=== PATIENT | male | born 2000 | race Caucasian/White ===

== ENCOUNTER 2023-01-03 19:44 | Emergency (ER) | payer MEDICAID, OTHER ==
--- NOTE | 2023-01-03 20:07 | ERPHSYRPT ---
- History of Present Illness Time Seen by Provider: 01/03/23 20:07 Source: patient Exam Limitations: no limitations Physician History: This is a 22-year-old white male who jumped out of bed quickly onto the floor to intervene in a dog fight and twisted his left ankle. He noticed swelling to the outer aspect of his left ankle. Method of Injury: twisted Occurred: just prior to arrival Quality: aching Severity of Pain-Max: mild Severity of Pain-Current: mild Lower Extremities Pain: ankle: left Modifying Factors: Improves With: movement Associated Symptoms: other (Hurts to bear weight) Allergies/Adverse Reactions: No Known Drug Allergies Allergy (Verified 07/22/16 17:48) Home Medications: No Home Meds 11/03/12 [History] Hx Tetanus, Diphtheria Vaccination/Date Given: Yes Hx Influenza Vaccination/Date Given: No Hx Pneumococcal Vaccination/Date Given: No Travel Risk - International Travel Have you traveled outside of the country in past 3 weeks: No - Coronavirus Screening Are you exhibiting any of the following symptoms?: No Close contact with a COVID-19 positive Pt in past 14-21 Days: No - Review of Systems Constitutional: No Symptoms Eyes: No Symptoms Ears, Nose, & Throat: No Symptoms Respiratory: No Symptoms Cardiac: No Symptoms Abdominal/Gastrointestinal: No Symptoms Genitourinary Symptoms: No Symptoms Musculoskeletal: Injury (Left ankle) Skin: No Symptoms Neurological: No Symptoms Psychological: No Symptoms Endocrine: No Symptoms Hematologic/Lymphatic: No Symptoms Immunological/Allergic: No Symptoms All Other Systems: Reviewed and Negative - Past Medical History Pertinent Past Medical History: No Neurological History: No Pertinent History ENT History: No Pertinent History Cardiac History: No Pertinent History Respiratory History: No Pertinent History Endocrine Medical History: No Pertinent History Musculoskeletal History: No Pertinent History GI Medical History: No Pertinent History History: No Pertinent History Psycho-Social History: No Pertinent History Male Reproductive Disorders: No Pertinent History Other Medical History: BROKEN FOOT, - Past Surgical History Past Surgical History: Yes Neuro Surgical History: No Pertinent History Cardiac: No Pertinent History Respiratory: No Pertinent History Gastrointestinal: No Pertinent History Genitourinary: No Pertinent History Other Surgical History: tubes in ears - Social History Smoking Status: Never smoker Exposure to second hand smoke: Yes Drug Use: none Patient Lives Alone: No - Nursing Vital Signs Nursing Vital Signs: Initial Vital Signs Temperature 98.3 F 01/03/23 20:05 Pulse Rate 79 02/20/23 20:05 Respiratory Rate 18 01/03/23 20:05 Blood Pressure 142/83 01/03/23 20:05 O2 Sat by Pulse Oximetry 99 01/03/23 20:05 Pain Scale Pain Intensity 8 - Physical Exam General Appearance: no apparent distress, alert Eyes, Ears, Nose, Throat Exam: normal ENT inspection, moist mucous membranes, tonsillar exudate Neck Exam: normal inspection, non-tender, supple Cardiovascular/Respiratory Exam: chest non-tender, no respiratory distress Gastrointestinal/Abdominal Exam: non-tender Back Exam: normal inspection, normal range of motion, No CVA tenderness, No vertebral tenderness Hips Exam: bilateral: non-tender, normal inspection, normal range of motion, no evidence of injury Legs Exam: bilateral leg: non-tender, normal inspection, normal range of motion, no evidence of injury Knees Exam: bilateral knee: non-tender, normal inspection, normal range of motion, no evidence of injury Ankle Exam: right ankle: non-tender, normal inspection, normal range of motion, no evidence of injury, left ankle: pain (Left lateral ankle), soft tissue tenderness (Left lateral ankle), swelling (Left lateral ankle) Foot Exam: bilateral foot: non-tender, normal inspection, normal range of motion, no evidence of injury Neuro/Tendon Exam: normal sensation, normal motor functions, normal tendon functions Mental Status Exam: alert, oriented x 3, cooperative Skin Exam: normal color, warm, dry SpO2 Interpretation: airway management int. O2 Delivery: Room Air - Course Nursing assessment & vital signs reviewed: Yes Ordered Tests: Active Orders 24 hr Category Date Time Status Gene Bandage Application -[facility] STAT Care 01/03/23 21:51 Ordered ANKLE (3 VIEWS) Stat Exams 01/03/23 20:19 Taken - Progress Progress Note: 01/03/23 21:55 X-ray left ankle shows no acute fracture or dislocation. There is soft tissue swelling lateral aspect of the left ankle 01/03/23 21:56 This patient's medical issue is of low complexity. The work-up was based on the patient's history of present illness and physical findings on examination. I ordered a x-ray of the left ankle. The results show no acute fracture or dislocation. There is soft tissue swelling present. The plan for him is to place him in an Gene wrap and to have him use ice pack 2-3 times a day for the next 48 hours and to use Tylenol and ibuprofen for pain control. Counseled pt/family regarding: diagnosis, need for follow-up, rad results Medical Desision Making - Discussion of managment Reviewed:: Test results Agreed on:: Treatment plan, need for follow-up - Diagnostic Testing Diagnostic test were ordered, analyzed, and reviewed by me: Yes Radiological Interpretation: Interpreted by me - Risk of complications Minimal Risk: Minimal risk of morbidity - Departure Departure Disposition: Home Clinical Impression: Left ankle sprain Condition: Stable Critical Care Time: No Referrals: EYAD JIMENES MD [COURTESY STAFF] - Follow up/PCP as directed Additional Instructions: Apply ice pack to tender and swollen area 3 times a day for the next 48 hours. Use Tylenol and ibuprofen for pain control. Weightbearing as tolerated. Wear Gene wrap for comfort. For persistent pain beyond the next 48 hours, follow-up at [facility] orthopedic clinic Tuesday through Tuesday 8 AM to 10 AM. Is a walk-in clinic and you do not need to have an appointment.
[2023-01-03 22:15] VITALS: BP 132/61; PULSE 64; O2SAT 97
--- NOTE | 2023-01-04 09:03 | XRAY ---
Indication: Pain and swelling. Comparison: None 3 view left ankle demonstrates anterolateral soft tissue swelling. No other bony, articular, or soft tissue abnormalities.
== END 2023-01-03 22:16 | disposition home or self-care (01) ==
LOC: ED 19:44
DX: S93.402A Sprain of unspecified ligament of left ankle, initial encounter (principal); X50.0XXA Overexertion from strenuous movement or load, initial encounter; Y92.003 Bedroom of unspecified non-institutional (private) residence as the place of occurrence of the external cause
CPT/HCPCS: 73610; 99283

== ENCOUNTER 2025-02-16 19:07 | Observation (INO) | payer OTHER ==
--- NOTE | 2025-02-16 19:42 | ERPHSYRPT ---
- History of Present Illness Time Seen by Provider: 02/16/25 19:39 Historian: patient, family Exam Limitations: no limitations Patient Subjective Stated Complaint: pt states that his side has hurt since yesterday. pt states that pain is worse after eating Triage Nursing Assessment: pt ambulated into the er; pt is axo x4; c/o rt side pain; pt states 6/10 pain to rt side; abd round, soft, nontender; active bowel sounds in all quads; denies N/V/D; skin PDW; no respiratory distress present; hypertensive Physician History: Patient is 24-year-old male otherwise healthy started having right upper quadrant abdominal pain since yesterday after he ate at around noon time. Patient was waxing and waning but today afternoon after lunch it started coming back again so he was brought into the emergency room. He denies any fever chills nausea vomiting blood in the stool or urine. He did not have this type of symptoms ever before. He does not have any history of abdominal surgery. Timing/Duration: yesterday Activities at Onset: none Quality: cramping Abdominal Pain Onset Location: RUQ Pain Radiation: no radiation Severity of Pain-Max: mild Severity of Pain-Current: mild Modifying Factors: Improves With: nothing Associated Symptoms: denies symptoms Previous symptoms: no prior history Body Map: 1 - area of pain Allergies/Adverse Reactions: No Known Drug Allergies Allergy (Verified 02/16/25 19:13) Home Medications: No Reportable Medications [No Reported Medications] 02/16/25 [History] Hx Tetanus, Diphtheria Vaccination/Date Given: Yes Hx Influenza Vaccination/Date Given: No Hx Pneumococcal Vaccination/Date Given: No Travel Risk - International Travel Have you traveled outside of the country in past 3 weeks: No - Emerging Infectious Disease Are you exhibiting symptoms associated with any current EIDs: No - Review of Systems Constitutional: No Fever, No Chills Eyes: No Symptoms Ears, Nose, & Throat: No Symptoms Respiratory: No Cough, No Dyspnea Cardiac: No Chest Pain, No Edema, No Syncope Abdominal/Gastrointestinal: Abdominal Pain (RUQ), No Nausea, No Vomiting, No Diarrhea, No Constipation Genitourinary Symptoms: No Dysuria Musculoskeletal: No Symptoms, No Back Pain, No Neck Pain Skin: No Rash Neurological: No Dizziness, No Focal Weakness, No Sensory Changes Psychological: No Symptoms Endocrine: No Symptoms Hematologic/Lymphatic: No Symptoms Immunological/Allergic: No Symptoms All Other Systems: Reviewed and Negative - Past Medical History Pertinent Past Medical History: No Neurological History: No Pertinent History ENT History: No Pertinent History Cardiac History: No Pertinent History Respiratory History: No Pertinent History Endocrine Medical History: No Pertinent History Musculoskeletal History: No Pertinent History GI Medical History: No Pertinent History History: No Pertinent History Psycho-Social History: No Pertinent History Male Reproductive Disorders: No Pertinent History Other Medical History: BROKEN FOOT, - Past Surgical History Past Surgical History: Yes Neuro Surgical History: No Pertinent History Cardiac: No Pertinent History Respiratory: No Pertinent History Gastrointestinal: No Pertinent History Genitourinary: No Pertinent History Other Surgical History: tubes in ears - Social History Smoking Status: Never smoker Exposure to second hand smoke: Yes Drug Use: none - Social Determinants of Health Will the patient participate in the screening: Yes Do you worry about a steady place to live?: No Do you have any problems with any of the following?: No known problems In the past 12 months,have you had to go without utilities?: No Transportation Issues: No Has anyone in your support network made you feel unsafe?: No Have you or anyone in your house had to go w/o enough food: No - Nursing Vital Signs Nursing Vital Signs: Initial Vital Signs Temperature 98 F 02/16/25 19:15 Pulse Rate 74 02/16/25 19:15 Respiratory Rate 16 02/16/25 19:15 Blood Pressure 160/87 02/16/25 19:15 O2 Sat by Pulse Oximetry 96 02/16/25 19:15 Pain Scale Pain Intensity 6 - Physical Exam General Appearance: no apparent distress, alert Eye Exam: PERRL/EOMI, eyes nml inspection Ears, Nose, Throat Exam: normal ENT inspection, pharynx normal, moist mucous membranes Neck Exam: normal inspection, non-tender, supple, full range of motion Respiratory Exam: normal breath sounds, lungs clear, No respiratory distress Cardiovascular Exam: regular rate/rhythm, normal heart sounds Gastrointestinal/Abdomen Exam: soft, normal bowel sounds, tenderness (RUQ), No distention, No mass, No guarding, No rebound, No hernia, No hepatomegaly Back Exam: normal inspection, normal range of motion, No CVA tenderness, No vertebral tenderness Extremity Exam: normal inspection, normal range of motion, pelvis stable Neurologic Exam: alert, oriented x 3, cooperative, normal mood/affect, nml cerebellar function, sensation nml, No motor deficits Skin Exam: normal color, warm, dry SpO2: 96 - Course Nursing assessment & vital signs reviewed: Yes - CT Exams Abdomen/Pelvis CT Interpretation: Tele-radiologist Report Ordered Tests: Active Orders 24 hr Category Date Time Status Consult Surgery ROUTINE Cons 02/16/25 22:05 Active ABDOMEN AND PELVIS W/0 CONTRAS [CT] Stat Exams 02/16/25 20:21 Completed AMYLASE Stat Lab 02/16/25 19:50 Completed CBC W DIFF Stat Lab 02/16/25 19:50 Completed CMP Stat Lab 02/16/25 19:50 Completed LIPASE Stat Lab 02/16/25 19:50 Completed UA W/RFX UR CULTURE Stat Lab 02/16/25 20:25 Completed Medication Summary Generic Name Dose Route Start Last Admin Trade Name Freq PRN Reason Stop Dose Admin Cefazolin Sodium 1 gm in 100 mls @ 200 mls/hr 02/16/25 22:23 Cefazolin 1 Gm/100 Ml Nacl Ivpb IV 02/16/25 22:52 STAT STA Discontinued Medications Generic Name Dose Route Start Last Admin Trade Name Freq PRN Reason Stop Dose Admin Ketorolac Tromethamine 60 mg 02/16/25 21:23 02/16/25 21:28 Ketorolac Tromethamine 30 Mg/Ml Inj IM 02/16/25 21:24 60 mg STAT ONE Administration Ketorolac Tromethamine Confirm 02/16/25 21:27 Ketorolac Tromethamine 30 Mg/Ml Inj Administered 02/16/25 21:28 Dose 60 mg .ROUTE .STK-MED ONE Lab/Rad Data: Laboratory Result Diagrams 02/16/25 19:50 02/16/25 19:50 Laboratory Results 02/16/25 02/16/25 02/16/25 Range/Units 20:25 19:50 19:50 WBC 11.9 H (4.23-9.07) x10^3/uL RBC 5.22 (4.63-6.08) x10^6/uL Hgb 14.8 (13.7-17.5) g/dL Hct 45.4 (40.1-51.0) % MCV 87.0 (79.0-92.2) fL MCH 28.4 (25.7-32.2) pg MCHC 32.6 (32.3-36.5) g/dL RDW 12.5 (11.6-14.4) % Plt Count 382 H (163-337) x10^3/uL MPV 9.5 (9.4-12.4) fL Gran % 73.2 H (34.0-67.9) % Immature Gran % (Auto) 0.3 (0.001-0.429) % Nucleat RBC Rel Count 0.0 (0.00-0.2) % Eos # (Auto) 0.24 (0.04-0.54) x10^3/uL Immature Gran # (Auto) 0.04 H (0.001-0.031) x10^3u/L Absolute Lymphs (auto) 1.91 (1.32-3.57) x10^3/uL Absolute Monos (auto) 0.96 H (0.30-0.82) x10^3/uL Absolute Nucleated RBC 0.00 (0.00-0.012) x10^3u/L Lymphocytes % 16.1 L (21.8-53.1) % Monocytes % 8.1 (5.3-12.2) % Eosinophils % 2.0 (0.8-7.0) % Basophils % 0.3 (0.2-1.2) % Absolute Granulocytes 8.67 H (1.78-5.38) x10^3/uL Basophils # 0.04 (0.01-0.08) x10^3/uL Sodium 145 (135-145) mmol/L Potassium 3.9 (3.5-5.1) mmol/L Chloride 105 (98-107) mmol/L Carbon Dioxide 25 (22-30) mmol/L Anion Gap 18.4 H (5-15) MEQ/L BUN 13 (9-20) mg/dL Creatinine 1.39 H (0.66-1.25) mg/dL Estimated GFR 72.6 ML/MIN Glucose 104 (74-106) mg/dL Calcium 9.5 (8.4-10.2) mg/dL Total Bilirubin 0.40 (0.2-1.3) mg/dL AST 26 (17-59) U/L ALT 36 (0-50) U/L Alkaline Phosphatase 60 (38-126) U/L Serum Total Protein 7.8 (6.3-8.2) g/dL Albumin 4.9 (3.5-5.0) g/dL Amylase 60 (30-110) U/L Lipase 46 (23-300) U/L Urine Color Yellow (Yellow) Urine Appearance Clear (Clear) Urine pH 5.5 (4.6-8.0) Ur Specific [place] 1.010 (1.005-1.030) Urine Protein Negative (Negative) Urine Glucose (UA) Negative (Negative) mg/dL Urine Ketones Negative (Negative) Urine Blood Small A (Negative) Urine Nitrite Negative (Negative) Urine Bilirubin Negative (Negative) Urine Urobilinogen 0.2 (0.2) mg/dL Ur Leukocyte Esterase Negative (Negative) Urine Microscopic RBC 0-2 (0-5) /HPF Urine Microscopic WBC 0-2 (0-5) /HPF Ur Epithelial Cells Rare (None Seen) /HPF Urine Bacteria None Seen (None Seen) /HPF Urine Culture Reflexed NO (NO) CLINICAL HISTORY: RUQ abdominal pain COMPARISON: No prior studies available for comparison. TECHNIQUE: Non-contrast CT of the abdomen and pelvis was performed, with the following protocol: axial images, and reconstructed coronal and sagittal images. One of the following dose reduction techniques was utilized for this exam: Automated exposure control, adjustment of the mA and/or kV according to patient size, and use of iterative reconstruction. DLP: 905.3 mGy-cm, CTDI: 14 mGy. FINDINGS: Abdomen: Liver: Normal in size, shape, and density. No focal lesions, cysts, or masses were identified. Gallbladder and Biliary System: The gallbladder is normal in size and shape. No wall thickening, pericholecystic fluid, or gallstones were identified. PatientID: [id number] Patient Name: ULYSSES BAER Exam Date: 02/16/2025 Procedure: ABDOMEN AND PELVIS W/0 CONTRAS page 1 of 3 Some hyperdense layering is seen along the dependent wall of gall bladder in the region of neck, raising suspicion for gall bladder sludge - needs ultrasound correlation. Pancreas: Pancreatic head, body, and tail are visualized and appear normal in size and density. No pancreatic masses or calcifications were noted. Spleen: Normal in size, shape, and density. No splenic lesions or masses were identified. A 1.4 cm splenunculus is seen. Appendix: The appendix is mildly dilated measures 7.5 mm, without ivory appendiceal fat stranding, and without an appendicolith. No evidence of appendiceal abscess or perforation. Kidneys and Adrenal Glands: Both kidneys are normal in size, shape, and position. Cortical thickness is within normal limits. No renal calculi or hydronephrosis. Adrenal glands are unremarkable. Abdominal Aorta and Vessels: The abdominal aorta and major branches are patent without evidence of an aneurysm or significant atherosclerosis. Pelvis: Urinary Bladder: Normal in contour and wall thickness. No intraluminal lesions. Prostate: Normal in size and contour. No masses or abnormal thickening. Seminal Vesicles: Normal appearance without abnormal enlargement or mass. Peritoneal and Retroperitoneal Structures: No free fluid or abnormal fluid collections were identified within the abdomen or pelvis. No lymphadenopathy was noted. Multiple tiny subcentimeter lymph nodes are seen with short axis less than 7 mm. Bowel: The visualized bowel loops are normal in caliber and appearance. No evidence of bowel obstruction or wall thickening. A tiny 4mm umbilical hernia. Bones and Soft Tissues: Pelvic bones and soft tissues are unremarkable. No fractures or abnormal masses were identified. Slices through lung bases are clear. PatientID: [id number] Patient Name: ULYSSES BAER Exam Date: 02/16/2025 Procedure: ABDOMEN AND PELVIS W/0 CONTRAS page 2 of 3 IMPRESSION: 1. Some hyperdense layering is seen along the dependent wall of gall bladder in the region of neck, raising suspicion for gall bladder sludge - needs ultrasound correlation. 2. The appendix is mildly dilated measures 7.5 mm, without ivory appendiceal fat stranding, and without an appendicolith. Clinical correlation is recommended to rule out subacute appendicitis. - Progress Progress: unchanged, pain not gone completely Counseled pt/family regarding: lab results, diagnosis, need for follow-up, rad results Medical Desision Making - Independent Historian Additional History obtained from: Family - Discussion of managment Care discussed with:: hospitalist Reviewed:: Need for additional workup Agreed on:: decision to admit Will see patient: in hospital - Diagnostic Testing Diagnostic test were ordered, analyzed, and reviewed by me: Yes Radiological Interpretation: Teleradiologist Report - Risk of complications The pt has a mod risk of morbidity or mortality based on: Need for major surgery in otherwise healthy patient - Departure Departure Disposition: Observation Clinical Impression: Gall bladder stones Acute appendicitis Qualifiers: Acute appendicitis type: with localized peritonitis Appendicitis gangrene presence: without gangrene Appendicitis perforation presence: without perforation Appendicitis abscess presence: without abscess Qualified Code(s): K35.30 - Acute appendicitis with localized peritonitis, without perforation or gangrene Condition: Stable Critical Care Time: Yes Critical Care Time(excluding separately billable procedures): Critical 30-74 mins Referrals: DOCTOR,NO FAMILY [Primary Care Provider] - Follow up/PCP as directed
[2025-02-16 19:56] LABS: Absolute Neutrophil Ct (ANC) 8.67 x10^3/uL (1.78-5.38); BASOPHIL % 0.3 % (0.2-1.2); Basophil (Absolute #) 0.04 x10^3/uL (0.01-0.08); Eosinophil (Absolute #) 0.24 x10^3/uL (0.04-0.54); Hematocrit 45.4 % (40.1-51.0); Hemoglobin 14.8 g/dL (13.7-17.5); IMMATURE GRAN # 0.04 x10^3u/L (0.001-0.031); IMMATURE GRAN % 0.3 % (0.001-0.429); Lymphocyte (Absolute #) 1.91 x10^3/uL (1.32-3.57); Lymphocytes % 16.1 % (21.8-53.1); Mean Corpuscular Hemoglobin 28.4 pg (25.7-32.2); Mean Corpuscular Hgb Concent. 32.6 g/dL (32.3-36.5); Mean Platelet Volume 9.5 fL (9.4-12.4); Monocyte (Absolute #) 0.96 x10^3/uL (0.30-0.82); Monocytes % 8.1 % (5.3-12.2); Neutrophil % 73.2 % (34.0-67.9); Platelet Count 382 x10^3/uL (163-337); Red Blood Count 5.22 x10^6/uL (4.63-6.08); Red Cell Distribution Width 12.5 % (11.6-14.4); White Blood Count 11.9 x10^3/uL (4.23-9.07)
[2025-02-16 20:18] LABS: ALBUMIN 4.9 g/dL (3.5-5.0); ANION GAP 18.4 MEQ/L (5-15); BILIRUBIN,TOTAL 0.4 mg/dL (0.2-1.3); Calcium 9.5 mg/dL (8.4-10.2); Creatinine 1 1.39 mg/dL (0.66-1.25); EST GLOMERULAR FILTRATION RATE 72.6 ML/MIN; Potassium 3.9 mmol/L (3.5-5.1); Total Protein 7.8 g/dL (6.3-8.2)
[2025-02-16 20:33] LABS: Appearance Clear (Clear); Ketones Negative (Negative); Leukocyte Esterase Negative (Negative); Nitrite Negative (Negative); Ph 5.5 (4.6-8.0); Protein,Urine Dip Negative (Negative)
[2025-02-16 20:34] LABS: Bacteria None Seen /HPF (None Seen); Bilirubin Negative (Negative); Blood Small (Negative); Epithelial Cells Rare /HPF (None Seen); Glucose, Urine Negative (Negative); RBC 0-2 /HPF (0-5); Urobilinogen 0.2 mg/dL (0.2); WBC 0-2 /HPF (0-5)
[2025-02-16] MEDS ORDERED: TORAdol 30 mg Injection ONE (21:27)
[2025-02-16] MEDS: TORAdol 30 mg Injection IM ONE (21:28)
--- NOTE | 2025-02-16 21:57 | XRAY ---
CLINICAL HISTORY: RUQ abdominal pain COMPARISON: No prior studies available for comparison. TECHNIQUE: Non-contrast CT of the abdomen and pelvis was performed, with the following protocol: axial images, and reconstructed coronal and sagittal images. One of the following dose reduction techniques was utilized for this exam: Automated exposure control, adjustment of the mA and/or kV according to patient size, and use of iterative reconstruction. DLP: 905.3 mGy-cm, CTDI: 14 mGy. FINDINGS: Abdomen: Liver: Normal in size, shape, and density. No focal lesions, cysts, or masses were identified. Gallbladder and Biliary System: The gallbladder is normal in size and shape. No wall thickening, pericholecystic fluid, or gallstones were identified. Some hyperdense layering is seen along the dependent wall of gall bladder in the region of neck, raising suspicion for gall bladder sludge - needs ultrasound correlation. Pancreas: Pancreatic head, body, and tail are visualized and appear normal in size and density. No pancreatic masses or calcifications were noted. Spleen: Normal in size, shape, and density. No splenic lesions or masses were identified. A 1.4 cm splenunculus is seen. Appendix: The appendix is mildly dilated measures 7.5 mm, without ivory appendiceal fat stranding, and without an appendicolith. No evidence of appendiceal abscess or perforation. Kidneys and Adrenal Glands: Both kidneys are normal in size, shape, and position. Cortical thickness is within normal limits. No renal calculi or hydronephrosis. Adrenal glands are unremarkable. Abdominal Aorta and Vessels: The abdominal aorta and major branches are patent without evidence of an aneurysm or significant atherosclerosis. Pelvis: Urinary Bladder: Normal in contour and wall thickness. No intraluminal lesions. Prostate: Normal in size and contour. No masses or abnormal thickening. Seminal Vesicles: Normal appearance without abnormal enlargement or mass. Peritoneal and Retroperitoneal Structures: No free fluid or abnormal fluid collections were identified within the abdomen or pelvis. No lymphadenopathy was noted. Multiple tiny subcentimeter lymph nodes are seen with short axis less than 7 mm. Bowel: The visualized bowel loops are normal in caliber and appearance. No evidence of bowel obstruction or wall thickening. A tiny 4mm umbilical hernia. Bones and Soft Tissues: Pelvic bones and soft tissues are unremarkable. No fractures or abnormal masses were identified. Slices through lung bases are clear. IMPRESSION: 1. Some hyperdense layering is seen along the dependent wall of gall bladder in the region of neck, raising suspicion for gall bladder sludge - needs ultrasound correlation. 2. The appendix is mildly dilated measures 7.5 mm, without ivory appendiceal fat stranding, and without an appendicolith. Clinical correlation is recommended to rule out subacute appendicitis. Electronically Signed by: León Robert MD. (02/16/2025 21:54:09 EDT)
[2025-02-16] MEDS ORDERED: CEFAZOLIN 1 GM/100 ML NACL IVPB 1 GM/100 ML IVPB IV ONE (22:33)
[2025-02-16] MEDS: CEFAZOLIN 1 GM/100 ML NACL IVPB 1 GM/100 ML IVPB IV STA (22:34)
[2025-02-16] MEDS ORDERED: MORPHINE SULFATE 4 MG INJ IV PRN (23:15)
[2025-02-16] MEDS ORDERED: Zofran 4 MG/2 ML VIAL IV PRN (23:15)
--- NOTE | 2025-02-16 23:40 | PCM.HP ---
History of Present Illness - Chief Complaint Chief Complaint: abdominal pain Date: 02/16/25 History of Present Illness: Silvestre Griffiths is a 24-year-old male who presents with a complaint of right-sided abdominal pain that began yesterday. He describes the pain as constant and aching in nature. He reports that the pain has neither improved nor worsened since its onset. He has not had any nausea, vomiting, diarrhea, constipation, fevers, or chills. He had a bowel movement yesterday, which did not affect the pain. He denies any previous episodes of similar pain. Mr. Griffiths does not have any significant past medical history and is not currently taking any medications. He does not smoke, consume alcohol, or use recreational drugs. There is no significant family history of medical problems. - Review of Systems All Other Systems: Reviewed and Negative Medications & Allergies Home Medications: Home Medication List No Reportable Medications [No Reported Medications] 02/16/25 [History Confirmed 02/16/25] Allergies/Adverse Reactions: Allergies Allergy/AdvReac Type Severity Reaction Status Date / Time No Known Drug Allergies Allergy Verified 02/16/25 19:13 - Past Medical History Past Medical History: No Neurological History: No Pertinent History ENT History: No Pertinent History Cardiac History: No Pertinent History Respiratory History: No Pertinent History Endocrine Medical History: No Pertinent History Musculoskelatal History: No Pertinent History GI Medical History: No Pertinent History History: No Pertinent History Pyscho-Social History: No Pertinent History Male Reproductive Disorders: No Pertinent History Comment: BROKEN FOOT, - Past Surgical History Past Surgical History: Yes Neuro Surgical History: No Pertinent History Cardiac History: No Pertinent History Respiratory Surgery: No Pertinent History GI Surgical History: No Pertinent History Genitourinary Surgical Hx: No Pertinent History Other Surgical History: tubes in ears Significant Family History: no pertinent family hx - Social History Smoking Status: Never smoker Exposure to second hand smoke: Yes Alcohol: None Drug Use: none - Social Determinants of Health Will the patient participate in the screening: Yes Do you worry about a steady place to live?: No Do you have any problems with any of the following?: No known problems In the past 12 months,have you had to go without utilities?: No Have you or anyone in your house had to go without enough: No Transportation Issues: No Has anyone in your support network made you feel unsafe?: No - Physical Exam Vital Signs: Vital Signs - 24 hr Temp Pulse Resp BP BP Pulse Ox 02/16/25 23:00 62 114/94 97 02/16/25 22:46 96 02/16/25 22:30 68 122/82 98 02/16/25 22:00 66 103/76 97 02/16/25 21:30 64 125/84 96 02/16/25 21:01 69 126/69 98 02/16/25 20:30 66 140/90 97 02/16/25 20:00 65 140/85 97 02/16/25 19:30 65 141/97 99 02/16/25 19:15 98 F 74 16 160/87 96 Physical Exam GEN: Sitting up in bed in no acute distress. HENT: Normocephalic, atraumatic. Moist mucous membranes. EYES: Normal inspection, anicteric sclera, extraocular movements intact. NECK: Supple, full range of motion CV: Regular rate and rhythm, no murmurs, no gallops. No JVD or edema. PULM: Clear to auscultation bilaterally, no work of breathing. On room air. ABD: Nondistended, nontender. MSK: No joint effusions, full range of motion SKIN: No rashes, normal color. NEURO: Face symmetric, no focal motor or sensory deficits. PSYCH: Alert, oriented x 3, flat affect Results - Labs Lab/Micro Results: Lab Results-Last 24 Hours 02/16/25 02/16/25 02/16/25 Range/Units 19:50 19:50 20:25 WBC 11.9 H (4.23-9.07) x10^3/uL RBC 5.22 (4.63-6.08) x10^6/uL Hgb 14.8 (13.7-17.5) g/dL Hct 45.4 (40.1-51.0) % MCV 87.0 (79.0-92.2) fL MCH 28.4 (25.7-32.2) pg MCHC 32.6 (32.3-36.5) g/dL RDW 12.5 (11.6-14.4) % Plt Count 382 H (163-337) x10^3/uL MPV 9.5 (9.4-12.4) fL Gran % 73.2 H (34.0-67.9) % Immature Gran % (Auto) 0.3 (0.001-0.429) % Nucleat RBC Rel Count 0.0 (0.00-0.2) % Eos # (Auto) 0.24 (0.04-0.54) x10^3/uL Immature Gran # (Auto) 0.04 H (0.001-0.031) x10^3u/L Absolute Lymphs (auto) 1.91 (1.32-3.57) x10^3/uL Absolute Monos (auto) 0.96 H (0.30-0.82) x10^3/uL Absolute Nucleated RBC 0.00 (0.00-0.012) x10^3u/L Lymphocytes % 16.1 L (21.8-53.1) % Monocytes % 8.1 (5.3-12.2) % Eosinophils % 2.0 (0.8-7.0) % Basophils % 0.3 (0.2-1.2) % Absolute Granulocytes 8.67 H (1.78-5.38) x10^3/uL Basophils # 0.04 (0.01-0.08) x10^3/uL Sodium 145 (135-145) mmol/L Potassium 3.9 (3.5-5.1) mmol/L Chloride 105 (98-107) mmol/L Carbon Dioxide 25 (22-30) mmol/L Anion Gap 18.4 H (5-15) MEQ/L BUN 13 (9-20) mg/dL Creatinine 1.39 H (0.66-1.25) mg/dL Estimated GFR 72.6 ML/MIN Glucose 104 (74-106) mg/dL Calcium 9.5 (8.4-10.2) mg/dL Total Bilirubin 0.40 (0.2-1.3) mg/dL AST 26 (17-59) U/L ALT 36 (0-50) U/L Alkaline Phosphatase 60 (38-126) U/L Serum Total Protein 7.8 (6.3-8.2) g/dL Albumin 4.9 (3.5-5.0) g/dL Amylase 60 (30-110) U/L Lipase 46 (23-300) U/L Urine Color Yellow (Yellow) Urine Appearance Clear (Clear) Urine pH 5.5 (4.6-8.0) Ur Specific [place] 1.010 (1.005-1.030) Urine Protein Negative (Negative) Urine Glucose (UA) Negative (Negative) mg/dL Urine Ketones Negative (Negative) Urine Blood Small A (Negative) Urine Nitrite Negative (Negative) Urine Bilirubin Negative (Negative) Urine Urobilinogen 0.2 (0.2) mg/dL Ur Leukocyte Esterase Negative (Negative) Urine Microscopic RBC 0-2 (0-5) /HPF Urine Microscopic WBC 0-2 (0-5) /HPF Ur Epithelial Cells Rare (None Seen) /HPF Urine Bacteria None Seen (None Seen) /HPF Urine Culture Reflexed NO (NO) - Radiology Impressions Radiology Exams & Impressions: Radiology Procedures Category Date Time Status ABDOMEN AND PELVIS W/0 CONTRAS [CT] Stat Exams 02/16/25 20:[address] abdomen/pelvis appendix mildly dilated at 7.5 mm without periappendiceal fat stranding or appendicolith. No appendiceal abscess or perforation. Normal size and shape of gallbladder with no wall thickening, gallstones, or pericholecystic fluid. However has some hyperdense layering along the dependent wall with possibility of gallbladder sludge. Assessment/Plan (1) Acute appendicitis Current Visit: Yes Status: Acute Qualifiers: Acute appendicitis type: with localized peritonitis Appendicitis gangrene presence: without gangrene Appendicitis perforation presence: without perforation Appendicitis abscess presence: without abscess Qualified Code(s): K35.30 - Acute appendicitis with localized peritonitis, without perforation or gangrene Assessment & Plan: 24-year-old man with no significant past medical history here with acute appendicitis. The appendicitis appears to be quite early in its course, with only minimal dilation around the appendix and no fat stranding. No evidence of perforation or abscess. Accompanied by some mild acute kidney injury, with Cr up to 1.4. Surgery consulted, and they plan to take to the OR in the morning Started Zosyn 4.5 g IV q.8 hours until able to go to the OR Continue with LR at 100 mL/h - Repeat BMP in AM PRN morphine and Zofran N.p.o. CODE STATUS: Full code Prophylaxis: Low risk, encourage ambulation Diet: N.p.o. Dispo: Place in observation, expect discharge to home after surgery Entirety of encounter took place via live audio/video telemedicine device, with remote physician and patient in hospital, with the assistance of bedside nurse. Code(s): K35.80 - UNSPECIFIED ACUTE APPENDICITIS Telemedicine Encounter - Telemedicine Encounter Telemedicine Encounter: "The entirety of this encounter was performed via Telemedicine" This visit was performed using real-time audio and video connection between my location and thepatients locationwith the assistance of a surrogateat the patients location. Written or verbal consent was obtained from the patient/guardian to perform this visit usingnchrYagomarttelemedicine technology. Any patient questions regarding the telemedicine interaction were answered.
[2025-02-17] MEDS ORDERED: MORPHINE SULFATE 4 MG INJ IV PRN (00:10)
[2025-02-17] MEDS: Sodium Chloride 0.9% 1000 ML 1,000 ML IV SCH (00:19)
[2025-02-17] MEDS ORDERED: PIPERACILLIN/TAZOBACTAM IV ONE (05:10)
[2025-02-17] MEDS ORDERED: Sodium Chloride 100ML MINI-BAG PLUS 100 ML IV ONE (05:10)
[2025-02-17 05:16] LABS: Hematocrit 43.2 % (40.1-51.0); Hemoglobin 14.1 g/dL (13.7-17.5); Mean Cell Volume 87.6 fL (79.0-92.2); Mean Corpuscular Hemoglobin 28.6 pg (25.7-32.2); Mean Corpuscular Hgb Concent. 32.6 g/dL (32.3-36.5); Mean Platelet Volume 9.6 fL (9.4-12.4); Platelet Count 353 x10^3/uL (163-337); Red Blood Count 4.93 x10^6/uL (4.63-6.08); Red Cell Distribution Width 12.6 % (11.6-14.4); White Blood Count 8.3 x10^3/uL (4.23-9.07)
[2025-02-17] MEDS: PIPERACILLIN/TAZOBACTAM 4.5 GM in Sodium Chloride 100ML MINI-BAG PLUS 100 ML IV SCH (05:18)
[2025-02-17 05:37] LABS: ANION GAP 14.5 MEQ/L (5-15); Calcium 8.9 mg/dL (8.4-10.2); Creatinine 1 1.38 mg/dL (0.66-1.25); EST GLOMERULAR FILTRATION RATE 73.2 ML/MIN; Potassium 3.7 mmol/L (3.5-5.1)
[2025-02-17] MEDS ORDERED: Sensorcaine 0.25% 10 ML ONE (09:45)
[2025-02-17] MEDS: Lactated Ringers 1,000 ML IV SCH (10:37)
[2025-02-17] MEDS: CEFOXITIN 2 GM/100 ML NACL IVPB 2 GM/100 ML IVPB IV SCH (10:49)
[2025-02-17] MEDS ORDERED: Quelicin Fliptop 200 MG/10 ML ONE (10:54)
[2025-02-17] MEDS ORDERED: ROCURONIUM BROMIDE IV ONE (10:54)
[2025-02-17] MEDS ORDERED: SUBLIMAZE 100 MCG/2 ML ONE ×2 (10:55→12:30)
[2025-02-17] MEDS ORDERED: propofoL IV ONE (10:55)
[2025-02-17] MEDS ORDERED: Versed 2 MG/2 ML Injection ONE (10:55)
[2025-02-17] MEDS ORDERED: Sodium Chloride 0.9% 1000 ML 1,000 ML ONE (11:00)
[2025-02-17] MEDS ORDERED: BRIDION 200MG/2ML IV ONE (11:34)
[2025-02-17] MEDS ORDERED: Zofran 4 MG/2 ML VIAL ONE (11:34)
[2025-02-17] MEDS ORDERED: TORAdol 30 mg Injection ONE (11:34)
--- NOTE | 2025-02-17 14:20 | PCM.DS ---
Discharge Summary Date of Admission: 02/16/25 23:14 Date of Discharge: 02/17/25 Admitting Physician: VIOLETTE SHAH MD Consults: Consults on Case 02/16/25 22:05 Consult Surgery ROUTINE Primary Care Provider: NO FAMILY DOCTOR Allergies Allergies No Known Drug Allergies Allergy (Verified 02/16/25 19:13) Hospital Summary - Hospital Course Hospital Course: Mr. Griffiths is a 24-year-old male admitted 02/16/25 with acute right lower quadrant abdominal pain. CT imaging confirmed early acute appendicitis without signs of perforation or abscess. Incidental finding of possible gallbladder sludge was noted, with outpatient ultrasound recommended. He also had a mild acute kidney injury with a creatinine of 1.4 mg/dL. The patient was started on IV fluids and Zosyn, and underwent an uncomplicated laparoscopic appendectomy. He recovered well postoperatively and was discharged in stable condition with Augmentin and [place]. He will follow up with surgery in two weeks and his primary care provider next week. Discharge Note New Diagnosis: Acute appendicitis New Medications: Augmentin/[place] Follow Up: PCP/ General Surgery I spent 35 minutes [id number] with the patient on the day of discharge performing discharge exam, discussing hospital stay and discharge instructions with patient and caregivers, preparation of discharge records, prescriptions & referral forms and addressing any questions/concerns the patient had as documented above. - Vitals & Intake/Output Vital Signs: Vital Signs Temperature 97 F 02/17/25 14:06 Pulse Rate 59 L 02/17/25 14:06 Respiratory Rate 18 02/17/25 14:06 Blood Pressure 120/60 02/17/25 14:06 O2 Sat by Pulse Oximetry 96 02/17/25 14:06 Intake & Output: Intake & Output 02/15/25 02/16/25 02/17/25 02/18/25 11:59 11:59 11:59 11:59 Intake Total 0 Balance 0 Weight 110.4 kg - Lab Result Diagrams: 02/17/25 04:55 02/17/25 04:55 Lab Results-Last 24 Hrs: Lab Results-Last 24 Hours 02/16/25 02/16/25 02/16/25 Range/Units 19:50 19:50 20:25 WBC 11.9 H (4.23-9.07) x10^3/uL RBC 5.22 (4.63-6.08) x10^6/uL Hgb 14.8 (13.7-17.5) g/dL Hct 45.4 (40.1-51.0) % MCV 87.0 (79.0-92.2) fL MCH 28.4 (25.7-32.2) pg MCHC 32.6 (32.3-36.5) g/dL RDW 12.5 (11.6-14.4) % Plt Count 382 H (163-337) x10^3/uL MPV 9.5 (9.4-12.4) fL Gran % 73.2 H (34.0-67.9) % Immature Gran % (Auto) 0.3 (0.001-0.429) % Nucleat RBC Rel Count 0.0 (0.00-0.2) % Eos # (Auto) 0.24 (0.04-0.54) x10^3/uL Immature Gran # (Auto) 0.04 H (0.001-0.031) x10^3u/L Absolute Lymphs (auto) 1.91 (1.32-3.57) x10^3/uL Absolute Monos (auto) 0.96 H (0.30-0.82) x10^3/uL Absolute Nucleated RBC 0.00 (0.00-0.012) x10^3u/L Lymphocytes % 16.1 L (21.8-53.1) % Monocytes % 8.1 (5.3-12.2) % Eosinophils % 2.0 (0.8-7.0) % Basophils % 0.3 (0.2-1.2) % Absolute Granulocytes 8.67 H (1.78-5.38) x10^3/uL Basophils # 0.04 (0.01-0.08) x10^3/uL Sodium 145 (135-145) mmol/L Potassium 3.9 (3.5-5.1) mmol/L Chloride 105 (98-107) mmol/L Carbon Dioxide 25 (22-30) mmol/L Anion Gap 18.4 H (5-15) MEQ/L BUN 13 (9-20) mg/dL Creatinine 1.39 H (0.66-1.25) mg/dL Estimated GFR 72.6 ML/MIN Glucose 104 (74-106) mg/dL Calcium 9.5 (8.4-10.2) mg/dL Total Bilirubin 0.40 (0.2-1.3) mg/dL AST 26 (17-59) U/L ALT 36 (0-50) U/L Alkaline Phosphatase 60 (38-126) U/L Serum Total Protein 7.8 (6.3-8.2) g/dL Albumin 4.9 (3.5-5.0) g/dL Amylase 60 (30-110) U/L Lipase 46 (23-300) U/L Urine Color Yellow (Yellow) Urine Appearance Clear (Clear) Urine pH 5.5 (4.6-8.0) Ur Specific [place] 1.010 (1.005-1.030) Urine Protein Negative (Negative) Urine Glucose (UA) Negative (Negative) mg/dL Urine Ketones Negative (Negative) Urine Blood Small A (Negative) Urine Nitrite Negative (Negative) Urine Bilirubin Negative (Negative) Urine Urobilinogen 0.2 (0.2) mg/dL Ur Leukocyte Esterase Negative (Negative) Urine Microscopic RBC 0-2 (0-5) /HPF Urine Microscopic WBC 0-2 (0-5) /HPF Ur Epithelial Cells Rare (None Seen) /HPF Urine Bacteria None Seen (None Seen) /HPF Urine Culture Reflexed NO (NO) 02/17/25 02/17/25 Range/Units 04:55 04:55 WBC 8.3 (4.23-9.07) x10^3/uL RBC 4.93 (4.63-6.08) x10^6/uL Hgb 14.1 (13.7-17.5) g/dL Hct 43.2 (40.1-51.0) % MCV 87.6 (79.0-92.2) fL MCH 28.6 (25.7-32.2) pg MCHC 32.6 (32.3-36.5) g/dL RDW 12.6 (11.6-14.4) % Plt Count 353 H (163-337) x10^3/uL MPV 9.6 (9.4-12.4) fL Gran % (34.0-67.9) % Immature Gran % (Auto) (0.001-0.429) % Nucleat RBC Rel Count (0.00-0.2) % Eos # (Auto) (0.04-0.54) x10^3/uL Immature Gran # (Auto) (0.001-0.031) x10^3u/L Absolute Lymphs (auto) (1.32-3.57) x10^3/uL Absolute Monos (auto) (0.30-0.82) x10^3/uL Absolute Nucleated RBC (0.00-0.012) x10^3u/L Lymphocytes % (21.8-53.1) % Monocytes % (5.3-12.2) % Eosinophils % (0.8-7.0) % Basophils % (0.2-1.2) % Absolute Granulocytes (1.78-5.38) x10^3/uL Basophils # (0.01-0.08) x10^3/uL Sodium 144 (135-145) mmol/L Potassium 3.7 (3.5-5.1) mmol/L Chloride 106 (98-107) mmol/L Carbon Dioxide 27 (22-30) mmol/L Anion Gap 14.5 (5-15) MEQ/L BUN 14 (9-20) mg/dL Creatinine 1.38 H (0.66-1.25) mg/dL Estimated GFR 73.2 ML/MIN Glucose 96 (74-106) mg/dL Calcium 8.9 (8.4-10.2) mg/dL Total Bilirubin (0.2-1.3) mg/dL AST (17-59) U/L ALT (0-50) U/L Alkaline Phosphatase (38-126) U/L Serum Total Protein (6.3-8.2) g/dL Albumin (3.5-5.0) g/dL Amylase (30-110) U/L Lipase (23-300) U/L Urine Color (Yellow) Urine Appearance (Clear) Urine pH (4.6-8.0) Ur Specific [place] (1.005-1.030) Urine Protein (Negative) Urine Glucose (UA) (Negative) mg/dL Urine Ketones (Negative) Urine Blood (Negative) Urine Nitrite (Negative) Urine Bilirubin (Negative) Urine Urobilinogen (0.2) mg/dL Ur Leukocyte Esterase (Negative) Urine Microscopic RBC (0-5) /HPF Urine Microscopic WBC (0-5) /HPF Ur Epithelial Cells (None Seen) /HPF Urine Bacteria (None Seen) /HPF Urine Culture Reflexed (NO) - Radiology Exams Ordered Rad Exams-Entire Visit: Radiology Procedures Category Date Time Status ABDOMEN AND PELVIS W/0 CONTRAS [CT] Stat Exams 02/16/25 20:21 Completed Discharge Exam General Appearance: no apparent distress Neurologic Exam: alert, oriented x 3, cooperative Eye Exam: PERRL Ears, Nose, Throat Exam: normal ENT inspection Neck Exam: normal inspection Respiratory Exam: normal breath sounds, lungs clear Cardiovascular Exam: regular rate/rhythm, normal heart sounds Gastrointestinal/Abdomen Exam: soft, normal bowel sounds, tenderness Male Genitalia Exam: deferred Rectal Exam: deferred Back Exam: normal inspection Extremity Exam: normal inspection Skin Exam: normal color, warm, dry Final Diagnosis/Problem List - Final Discharge Diagnosis/Problem (1) Acute appendicitis Current Visit: Yes Status: Resolved Code(s): K35.80 - UNSPECIFIED ACUTE APPENDICITIS (2) RYAN (acute kidney injury) Current Visit: Yes Status: Acute Code(s): N17.9 - ACUTE KIDNEY FAILURE, UNS PECIFIED (3) Gall bladder stones Current Visit: Yes Status: Chronic Code(s): K80.20 - CALCULUS OF GALLBLADDER W/O CHOLECYSTITIS W/O OBSTRUCTION - Discharge Discharge Date: 02/17/25 Disposition: Home, Self-Care Condition: Stable Prescriptions: New Amox Tr/Potass Clav. 875 mg [Augmentin 875-125 Tablet] 875 mg PO BID 7 Days #14 tablet Hydrocodone/Acetaminophen [Hydrocodone-Acetamin 7.5-325] 1 each PO Q4H PRN 3 Days #12 tablet MDD 6 PRN Reason: Pain Follow up with: NARCISA TOWNSEND [ACTIVE STAFF] - 2 weeks ([facility])
[2025-02-17] MEDS ORDERED: MORPHINE SULFATE 2 MG INJ IV PRN (14:25)
[2025-02-17 15:35] LABS: Calcium 8.8 mg/dL (8.4-10.2); Creatinine 1 1.29 mg/dL (0.66-1.25); EST GLOMERULAR FILTRATION RATE 79.4 ML/MIN
[2025-02-17 15:49] LABS: Potassium 4.5 mmol/L (3.5-5.1)
[2025-02-17] MEDS: NORCO 7.5/325 MG TAB PO PRN (17:46)
[2025-02-17] MEDS: Dextrose 5% -0.45 NaCl 1000 ML 1,000 ML IV SCH (18:52)
[2025-02-18 07:17] VITALS: BP 127/72; PULSE 75; RESP 20; TEMP 97.3; O2SAT 96
--- NOTE | 2025-02-18 09:33 | PCM.DS ---
Discharge Summary Date of Admission: 02/16/25 23:14 Date of Discharge: 02/18/25 Admitting Physician: VIOLETTE SHAH MD Consults: Consults on Case 02/16/25 22:05 Consult Surgery ROUTINE Primary Care Provider: NO FAMILY DOCTOR Allergies Allergies No Known Drug Allergies Allergy (Verified 02/16/25 19:13) Hospital Summary - Hospital Course Hospital Course: Mr. Griffiths is a 24-year-old male admitted 02/16/25 with acute right lower quadrant abdominal pain. CT imaging confirmed early acute appendicitis without signs of perforation or abscess. Incidental finding of possible gallbladder sludge was noted, with outpatient ultrasound recommended. He also had a mild acute kidney injury with a creatinine of 1.4 mg/dL. The patient was started on IV fluids and Zosyn, and underwent an uncomplicated laparoscopic appendectomy. He recovered well postoperatively and was discharged in stable condition with Augmentin and [place]. He will follow up with surgery in two weeks and his primary care provider next week. He opted to stay last night as he did not feel comfortable going home. Today he feels better and would like to d/c. - Vitals & Intake/Output Vital Signs: Vital Signs Temperature 97.3 F 02/18/25 07:16 Pulse Rate 75 02/18/25 07:16 Respiratory Rate 20 02/18/25 07:16 Blood Pressure 127/72 02/18/25 07:16 O2 Sat by Pulse Oximetry 96 02/18/25 07:16 Intake & Output: Intake & Output 02/15/25 02/16/25 02/17/25 02/18/25 11:59 11:59 11:59 11:59 Intake Total 0 3264 Balance 0 3264 Weight 110.4 kg - Lab Result Diagrams: 02/17/25 04:55 02/17/25 15:17 Lab Results-Last 24 Hrs: Lab Results-Last 24 Hours 02/17/25 Range/Units 15:17 Sodium 143 (135-145) mmol/L Potassium 4.5 D (3.5-5.1) mmol/L Chloride 107 (98-107) mmol/L Carbon Dioxide 27 (22-30) mmol/L Anion Gap 14.0 (5-15) MEQ/L BUN 16 (9-20) mg/dL Creatinine 1.29 H (0.66-1.25) mg/dL Estimated GFR 79.4 ML/MIN Glucose 94 (74-106) mg/dL Calcium 8.8 (8.4-10.2) mg/dL - Radiology Exams Ordered Rad Exams-Entire Visit: Radiology Procedures Category Date Time Status ABDOMEN AND PELVIS W/0 CONTRAS [CT] Stat Exams 02/16/25 20:21 Completed Discharge Exam General Appearance: no apparent distress, alert Neurologic Exam: alert, oriented x 3, cooperative, normal mood/affect, nml cerebellar function, sensation nml, No motor deficits Eye Exam: PERRL, EOMI, eyes nml inspection Ears, Nose, Throat Exam: normal ENT inspection, pharynx normal, moist mucous membranes Neck Exam: normal inspection, non-tender, supple, full range of motion Respiratory Exam: normal breath sounds, lungs clear, No respiratory distress Cardiovascular Exam: regular rate/rhythm, normal heart sounds Gastrointestinal/Abdomen Exam: soft, tenderness, No mass Male Genitalia Exam: deferred Rectal Exam: deferred Back Exam: normal inspection, normal range of motion, No CVA tenderness, No jaime tebral tenderness Extremity Exam: normal inspection, normal range of motion Skin Exam: normal color, warm, dry Final Diagnosis/Problem List - Final Discharge Diagnosis/Problem (1) Acute appendicitis Current Visit: Yes Status: Resolved Assessment & Plan: - 4/6 + surgery Started Zosyn 4.5 g IV q.8 hours Continue with LR at 100 mL/h - Oral and IV pain control - antiemetic - regular diet - CBC reviewed Code(s): K35.80 - UNSPECIFIED ACUTE APPENDICITIS (2) RYAN (acute kidney injury) Current Visit: Yes Status: Acute Assessment & Plan: - Creat 1.29- improved - CMP reviewed - IVF Code(s): N17.9 - ACUTE KIDNEY FAILURE, UNSPECIFIED (3) Gall bladder stones Current Visit: Yes Status: Chronic Assessment & Plan: - CT abd./pelvis 1. Some hyperdense layering is seen along the dependent wall of gall bladder in the region of neck, raising suspicion for gall bladder sludge - needs ultrasound correlation. 2. The appendix is mildly dilated measures 7.5 mm, without ivory appendiceal fat stranding, and without an appendicolith. Clinical correlation is recommended to rule out subacute appendicitis. - Will need OP US to further eval gallbladder Code(s): K80.20 - CALCULUS OF GALLBLADDER W/O CHOLECYSTITIS W/O OBSTRUCTION - Discharge Discharge Date: 02/18/25 Disposition: Home, Self-Care Condition: Stable Prescriptions: New Amox Tr/Potass Clav. 875 mg [Augmentin 875-125 Tablet] 875 mg PO BID 7 Days #14 tablet Hydrocodone/Acetaminophen [Hydrocodone-Acetamin 7.5-325] 1 each PO Q4H PRN 3 Days #12 tablet MDD 6 PRN Reason: Pain Instructions: Appendectomy - Discharge instructions Additional Instructions: Follow up with Dr. Cheek and PCP as scheduled. Follow up with: NARCISA CHEEK [ACTIVE STAFF] - 2 weeks ([facility])
--- NOTE | 2025-02-18 13:43 | OP ---
SURGERY DATE/TIME: 02/17/2025 [id number] PREOPERATIVE DIAGNOSIS: Acute appendicitis. POSTOPERATIVE DIAGNOSIS: Acute appendicitis. PROCEDURE: Laparoscopic appendectomy. SURGEON: Carlos Cheek MD ANESTHESIA: General. COMPLICATIONS: None. CONDITION: Stable. INDICATIONS: Patient with acute appendicitis, came in through the late night, was posted for today. He had IV antibiotics and pain medicine. He is robust. Procedure discussed. Family and the patient know me. Both dad and the son work at [email or web address]. DESCRIPTION OF PROCEDURE AND FINDINGS: Patient was taken to surgery. General anesthetic. Routine prep and drape. Time-out performed. Veress needed inserted in the umbilicus. Opening pressure to 14. Two 5's laterally, a 12 port centrally infraumbilical. Good visualization. No issue with establishing the pneumoperitoneum safely. The appendix was hanging down below the cecum. It was behind a natural veil that obscured the view some, so this natural veil was taken down with a 5 mm LigaSure until we could see. At this time, the appendix was raised up. The mesoappendix taken with 5 mm LigaSure back to base of cecum. It was then taken with a 2.5 vascular cartridge. It was well sealed off. It was up against the taenia. It looked excellent. Place in the condom bag and removed. It was a nonruptured appendix but it was acutely suppurative. The field was irrigated and suctioned. There had been about 10 mL of blood that was returned. The field was dry. The field was clean. No drains were placed. Staple line looked good. Whole area was hemostatic. The hole closure device was used on the infraumbilical 12 port. It was closed nicely with 0 Vicryl. CO2 was exsufflated. Skin closed with 4-0 Vicryl, Steri-Strips. Findings discussed with family. Patient probably will go home this evening.
--- NOTE | 2025-02-18 13:45 | HP ---
HISTORY AND PHYSICAL INITIAL DIAGNOSIS: Acute appendicitis. HISTORY OF PRESENT ILLNESS: The patient has a 24-hour history of upper abdominal progressing to right lower quadrant abdominal pain. A CT is positive. His white count was 9600. He was given IV antibiotics. He was given pain medicine. He was scheduled for this morning. HOME MEDICATIONS: None. ALLERGIES: None. PAST SURGICAL HISTORY: None. SOCIAL HISTORY: Mother and father are present with the son. REVIEW OF SYSTEMS: CARDIOVASCULAR: Negative. PULMONARY: Negative. GASTROINTESTINAL: Present illness. GENITOURINARY: Negative. PHYSICAL EXAMINATION: GENERAL: He is quite robust. He is under the weather. VITAL SIGNS: Sable. CHEST: Clear. COR: Regular. ABDOMEN: Tender McBurney's. Mildly distended. Quite a robust abdomen. IMPRESSION: Acute appendicitis. PLAN: Laparoscopic appendectomy.
== END 2025-02-18 10:50 | disposition home or self-care (01) ==
LOC: ED 19:07 → MED SURG 23:14
PROVIDERS: ADMIT Internal Medicine; ATTEND Internal Medicine
DX: K35.80 Unspecified acute appendicitis (principal); R10.31 Right lower quadrant pain; N17.9 Acute kidney failure, unspecified; K80.20 Calculus of gallbladder without cholecystitis without obstruction
CPT/HCPCS: 36415; 44970; 74176; 80048; 80053; 81001; 82150; 83690; 85025; 85027; 96372; 99291; Q3014; 99285; G0378; J0330; J0690; J0694; J1885; J2250; J2405; J2543; J2704; J3010; L0625; A9270-GY